=== PATIENT | male | born 1940 | race Caucasian/White ===

== ENCOUNTER 2017-05-20 04:15 | Emergency (ER) | payer MEDICARE ==
[2017-05-20] MEDS ORDERED: AMLO10TA2 PO (04:30)
[2017-05-20] MEDS ORDERED: METO1TAB33 PO (04:30)
[2017-05-20] MEDS ORDERED: FAMO20TA PO (04:30)
[2017-05-20] MEDS ORDERED: GLIM4TAB PO (04:30)
[2017-05-20] MEDS ORDERED: SIMV40TA2 PO (04:30)
[2017-05-20] MEDS ORDERED: PLAV1TAB2 PO (04:30)
[2017-05-20] MEDS ORDERED: ASPI1TAB PO (04:30)
[2017-05-20] MEDS ORDERED: LIDOCAINE 1% MDV 20ML VIAL IM ONE (06:30)
[2017-05-20] MEDS ORDERED: DERMABOND TOPICAL SKIN ADHESIVE TOP ONE (06:45)
[2017-05-20 07:03] VITALS: BP 135/70
== END 2017-05-20 07:05 | disposition home or self-care (01) ==
LOC: M ED 04:15
DX: S01.311A Laceration without foreign body of right ear, initial encounter (principal); W01.198A Fall on same level from slipping, tripping and stumbling with subsequent striking against other object, initial encounter; Y92.89 Other specified places as the place of occurrence of the external cause; Y93.89 Activity, other specified; Y99.8 Other external cause status; I11.9 Hypertensive heart disease without heart failure; Z95.5 Presence of coronary angioplasty implant and graft; F17.200 Nicotine dependence, unspecified, uncomplicated; Z79.899 Other long term (current) drug therapy; Z79.82 Long term (current) use of aspirin; Z79.02 Long term (current) use of antithrombotics/antiplatelets

== ENCOUNTER 2018-03-16 13:10 | Emergency (ER) | payer MEDICARE ==
[2018-03-16] MEDS: diazePAM 5 MG TAB PO (14:02)
[2018-03-16] MEDS: ACETAMINOPHEN TAB 650MG DOSE (2X325MG) PO (14:02)
== END 2018-03-16 15:18 | disposition home or self-care (01) ==
LOC: M ED 13:10
DX: M47.892 Other spondylosis, cervical region (principal); M50.20 Other cervical disc displacement, unspecified cervical region; M43.6 Torticollis; I10 Essential (primary) hypertension; E78.00 Pure hypercholesterolemia, unspecified; Z95.5 Presence of coronary angioplasty implant and graft; Z79.01 Long term (current) use of anticoagulants; F17.210 Nicotine dependence, cigarettes, uncomplicated
CPT/HCPCS: 72125

== ENCOUNTER 2018-03-21 10:17 | Inpatient (IN) | payer MEDICARE ==
[2018-03-21] MEDS: ONDANSETRON 4MG/2ML VIAL (J2405) IV ×2 (11:00→22:29)
[2018-03-21] MEDS: MORPHINE 2 MG/ML 1ML SYRINGE (J2270) IV (11:50)
[2018-03-21 11:55] LABS: BASO # 0.1 10^3/uL (0.0-0.2); BASO % 0.4 % (0.0-1.0); EOS # 0.1 10^3/uL (0.0-0.50); EOS % 0.4 % (0.0-3.0); HEMATOCRIT 40.8 % (42.0-52.0); HEMOGLOBIN 13.7 g/dl (13.5-17.5); IMMATURE GRANULOCYTE % 1.1 % (0-3.0); LYMPH # 0.5 10^3/uL (1.5-4.5); LYMPH % 3.7 % (24.0-44.0); MEAN CORPUSCULAR HEMOGLOBIN 28.1 pg (27.0-33.0); MEAN CORPUSCULAR HGB CONC 33.6 g/dl (32.0-36.5); MEAN CORPUSCULAR VOLUME 83.8 fl (80.0-96.0); MONO # 0.6 10^3/uL (0.0-0.8); MONO % 4.4 % (0.0-5.0); NEUTROPHILS # 12.3 10^3/uL (1.8-7.7); PLATELET COUNT, AUTOMATED 324 10^3/uL (150-450); RED BLOOD COUNT 4.87 10^6/uL (4.30-6.10); RED CELL DISTRIBUTION WIDTH 13.2 % (11.5-14.5); WHITE BLOOD COUNT 13.6 10^3/uL (4.0-10.0)
[2018-03-21 12:18] LABS: ERYTHROCYTE SEDIMENTATION RATE 39 mm/hr (0-20)
[2018-03-21 12:19] LABS: INR 1.16
[2018-03-21 12:20] LABS: PARTIAL THROMBOPLASTIN TIME 49.8 SECONDS (26.8-37.9)
[2018-03-21 12:26] LABS: ANION GAP 11 MEQ/L (8-16); BLOOD UREA NITROGEN 57 MG/DL (7-18); CALCIUM LEVEL 10.2 MG/DL (8.8-10.2); CARBON DIOXIDE LEVEL 21 MEQ/L (21-32); CHLORIDE LEVEL 101 MEQ/L (98-107); CPK CREATINE PHOSPHOKINASE 24 U/L (39-308); CREATININE FOR GFR 2.42 MG/DL (0.70-1.30); GLOMERULAR FILTRATION RATE 27.8 (>42); GLUCOSE, FASTING 203 MG/DL (70-100); POTASSIUM SERUM 4.8 MEQ/L (3.5-5.1); SODIUM LEVEL 133 MEQ/L (136-145); TROPONIN I < 0.02 NG/ML (< 0.10)
[2018-03-21 12:27] LABS: CK-MB VALUE MASS 1.2 NG/ML (<3.6)
[2018-03-21] MEDS ORDERED: GLUCOSE 4 GM CHEW TABLET PO (15:15)
[2018-03-21] MEDS ORDERED: DEXTROSE 50% 50 ML SYRINGE IV (15:15)
[2018-03-21] MEDS ORDERED: GLUCAGON FOR INJ 1 MG VIAL (J1610) SC (15:15)
[2018-03-21] MEDS: HumaLOG INSULIN (NovoLOG) PER UNIT SC ×2 (18:20→20:46)
[2018-03-21 18:23] LABS: CK-MB VALUE MASS < 1.0 NG/ML (<3.6); CPK CREATINE PHOSPHOKINASE 20 U/L (39-308); TROPONIN I < 0.02 NG/ML (< 0.10)
[2018-03-21] MEDS: NS 1,000 ML IV (18:25)
[2018-03-21] MEDS ORDERED: PILL CRUSHER/CUTTER 1 EACH XX (19:00)
[2018-03-21 20:19] LABS: BEDSIDE GLUCOSE 205 MG/DL (83-110)
[2018-03-21] MEDS: ASPIRIN 81 MG ENTERIC TAB PO (20:45)
[2018-03-21] MEDS: METOPROLOL TARTRATE 100 MG TAB PO (20:45)
[2018-03-21] MEDS: FAMOTIDINE 20 MG TAB PO (20:45)
[2018-03-21] MEDS: tiZANidine 4 MG TAB PO (20:46)
[2018-03-21] MEDS: SIMVASTATIN 20 MG TAB PO (20:46)
[2018-03-21] MEDS: CLOPIDOGREL 75 MG TAB PO (20:46)
[2018-03-21] MEDS ORDERED: amLODIPine 10 MG TAB PO (21:00)
[2018-03-21] MEDS: MECLIZINE 12.5 MG TAB PO (23:02)
[2018-03-22 03:03] LABS: HEMATOCRIT 34.5 % (42.0-52.0); MEAN CORPUSCULAR HGB CONC 33.3 g/dl (32.0-36.5); MEAN CORPUSCULAR VOLUME 84.1 fl (80.0-96.0); PLATELET COUNT, AUTOMATED 265 10^3/uL (150-450); RED CELL DISTRIBUTION WIDTH 13.5 % (11.5-14.5); WHITE BLOOD COUNT 14.6 10^3/uL (4.0-10.0)
[2018-03-22 03:06] LABS: HEMOGLOBIN 11.5 g/dl (13.5-17.5)
[2018-03-22 03:29] LABS: ALBUMIN 2.4 GM/DL (3.2-5.2); ALBUMIN/GLOBULIN RATIO 0.65 (1.00-1.93); ALKALINE PHOSPHATASE 150 U/L (45-117); ALT/SGPT 31 U/L (12-78); ANION GAP 8 MEQ/L (8-16); AST/SGOT 51 U/L (7-37); BILIRUBIN,TOTAL 0.4 MG/DL (0.2-1.0); BLOOD UREA NITROGEN 57 MG/DL (7-18); CALCIUM LEVEL 9.1 MG/DL (8.8-10.2); CARBON DIOXIDE LEVEL 21 MEQ/L (21-32); CHLORIDE LEVEL 104 MEQ/L (98-107); CK-MB VALUE MASS < 1.0 NG/ML (<3.6); CPK CREATINE PHOSPHOKINASE 17 U/L (39-308); CREATININE FOR GFR 2.16 MG/DL (0.70-1.30); GLOMERULAR FILTRATION RATE 31.7 (>42); GLUCOSE, FASTING 132 MG/DL (70-100); MB/CK RELATIVE INDEX 5.88 (< OR =4); SODIUM LEVEL 133 MEQ/L (136-145); TOTAL PROTEIN 6.1 GM/DL (6.4-8.2); TROPONIN I < 0.02 NG/ML (< 0.10)
[2018-03-22 03:32] LABS: POTASSIUM SERUM 5.5 MEQ/L (3.5-5.1)
[2018-03-22] MEDS ORDERED: HumuLIN R (REGULAR) INSULIN (NovoLIN R) **100U/ML** PER UNIT IV (04:25)
[2018-03-22] MEDS ORDERED: IPRATROPIUM 0.5MG/ALBUTEROL 2.5MG INH SOL UD 3ML (DUONEB)(J7620) NEB (04:30)
[2018-03-22] MEDS: IPRATROPIUM 0.5MG/ALBUTEROL 2.5MG INH SOL UD 3ML (DUONEB)(J7620) NEB (04:48)
[2018-03-22] MEDS: CALCIUM GLUCONATE 1,000 MG in D5W MINI-BAG PLUS 100 ML IV (05:02)
[2018-03-22] MEDS: SOD POLYSTYRENE SULFONATE SUSP 15 GM/60 ML UD PO (05:07)
[2018-03-22] MEDS: SODIUM BICARBONATE 8.4% INJ 50 ML SYRINGE IV (05:14)
[2018-03-22 05:53] LABS: ABG BASE EXCESS -3.1 (-2.0-2.0); ABG DEVICE NASAL CANN; ABG O2 LITER FLOW 2L; ABG O2 SATURATION 97.3 % (95.0-99.0); ABG PARTIAL PRESSURE CO2 34.7 mmHg (35.0-45.0); ABG PARTIAL PRESSURE O2 92.8 mmHg (75.0-100.0); ABG STANDARD HCO3 21.9 MEQ/L (22.0-26.0); ABG TOTAL CO2 22.1 MEQ/L (23.0-31.0)
[2018-03-22] MEDS: LACTULOSE 20 GM/30 ML SYRUP UD PO (06:00)
[2018-03-22 07:29] LABS: MAGNESIUM LEVEL 2.2 MG/DL (1.8-2.4)
[2018-03-22 07:57] LABS: BEDSIDE GLUCOSE 116 MG/DL (83-110)
[2018-03-22] MEDS: tiZANidine 4 MG TAB PO ×3 (08:38→20:21)
[2018-03-22] MEDS: HumaLOG INSULIN (NovoLOG) PER UNIT SC ×4 (08:39→20:23)
[2018-03-22 10:45] LABS: ANION GAP 8 MEQ/L (8-16); BLOOD UREA NITROGEN 56 MG/DL (7-18); CALCIUM LEVEL 9.4 MG/DL (8.8-10.2); CARBON DIOXIDE LEVEL 23 MEQ/L (21-32); CHLORIDE LEVEL 106 MEQ/L (98-107); CREATININE FOR GFR 1.96 MG/DL (0.70-1.30); GLOMERULAR FILTRATION RATE 35.5 (>42); GLUCOSE, FASTING 84 MG/DL (70-100); POTASSIUM SERUM 4.9 MEQ/L (3.5-5.1); SODIUM LEVEL 137 MEQ/L (136-145)
[2018-03-22 10:49] LABS: CK-MB VALUE MASS < 1.0 NG/ML (<3.6); CPK CREATINE PHOSPHOKINASE 20 U/L (39-308); TROPONIN I < 0.02 NG/ML (< 0.10)
[2018-03-22] MEDS: NS 1,000 ML IV (11:41)
[2018-03-22 11:58] LABS: BEDSIDE GLUCOSE 116 MG/DL (83-110)
[2018-03-22 17:14] LABS: BEDSIDE GLUCOSE 82 MG/DL (83-110)
[2018-03-22 19:41] LABS: OSMOLALITY URINE 570 MOSM/KG (500-800)
[2018-03-22 19:49] LABS: AMORPHOUS SEDIMENT RFX SMALL (NEGATIVE); KETONE, URINE AUTO RFX NEGATIVE (NEGATIVE); LEUKOCYTE ESTERASE UR AUTO RFX NEGATIVE (NEGATIVE); MUCUS, URINE RFX SMALL (NEGATIVE); NITRITE, URINE AUTO RFX NEGATIVE (NEGATIVE); RBC, URINE AUTO RFX 2 /HPF (0-3); SPECIFIC GRAVITY UR AUTO RFX 1.017 (1.002-1.035); SQUAM EPITHELIAL CELL UR AURFX 0 /HPF (0-6); WBC, URINE AUTO RFX 1 /HPF (0-3)
[2018-03-22 20:04] LABS: SODIUM,RANDOM URINE 45 MEQ/L
[2018-03-22 20:20] LABS: BEDSIDE GLUCOSE 179 MG/DL (83-110)
[2018-03-22] MEDS: SIMVASTATIN 20 MG TAB PO (20:21)
[2018-03-22] MEDS: CLOPIDOGREL 75 MG TAB PO (20:21)
[2018-03-22] MEDS: FAMOTIDINE 20 MG TAB PO (20:21)
[2018-03-22] MEDS: ASPIRIN 81 MG ENTERIC TAB PO (20:21)
[2018-03-22] MEDS: METOPROLOL TARTRATE 100 MG TAB PO (20:22)
[2018-03-23 05:26] LABS: HEMATOCRIT 36.3 % (42.0-52.0); HEMOGLOBIN 11.9 g/dl (13.5-17.5); MEAN CORPUSCULAR HEMOGLOBIN 27.9 pg (27.0-33.0); MEAN CORPUSCULAR HGB CONC 32.8 g/dl (32.0-36.5); PLATELET COUNT, AUTOMATED 246 10^3/uL (150-450); RED BLOOD COUNT 4.27 10^6/uL (4.30-6.10); RED CELL DISTRIBUTION WIDTH 13.6 % (11.5-14.5); WHITE BLOOD COUNT 14.9 10^3/uL (4.0-10.0)
[2018-03-23 05:52] LABS: ALBUMIN 2.3 GM/DL (3.2-5.2); ALBUMIN/GLOBULIN RATIO 0.59 (1.00-1.93); ALKALINE PHOSPHATASE 175 U/L (45-117); ALT/SGPT 36 U/L (12-78); ANION GAP 9 MEQ/L (8-16); AST/SGOT 64 U/L (7-37); BILIRUBIN,TOTAL 0.4 MG/DL (0.2-1.0); BLOOD UREA NITROGEN 56 MG/DL (7-18); CARBON DIOXIDE LEVEL 19 MEQ/L (21-32); CHLORIDE LEVEL 106 MEQ/L (98-107); CREATININE FOR GFR 1.93 MG/DL (0.70-1.30); GLOMERULAR FILTRATION RATE 36.1 (>42); GLUCOSE, FASTING 160 MG/DL (70-100); POTASSIUM SERUM 4.7 MEQ/L (3.5-5.1); SODIUM LEVEL 134 MEQ/L (136-145); TOTAL PROTEIN 6.2 GM/DL (6.4-8.2)
[2018-03-23] MEDS: NS 1,000 ML IV (06:45)
[2018-03-23] MEDS: HumaLOG INSULIN (NovoLOG) PER UNIT SC ×2 (08:31→12:00)
[2018-03-23] MEDS: tiZANidine 4 MG TAB PO (08:31)
[2018-03-23 11:34] LABS: TOTAL PROTEIN,RANDOM URINE 81.1 MG/DL (0.0-12.0)
== END 2018-03-23 13:01 | disposition home or self-care (01) | DRG 552 ==
LOC: M PCU 03-22 05:37 → M ED 10:17 → M ED INP 14:53 → M PCU 17:55
DX: M54.2 Cervicalgia (principal); C34.01 Malignant neoplasm of right main bronchus; C78.7 Secondary malignant neoplasm of liver and intrahepatic bile duct; E11.22 Type 2 diabetes mellitus with diabetic chronic kidney disease; N18.9 Chronic kidney disease, unspecified; G43.909 Migraine, unspecified, not intractable, without status migrainosus; M47.812 Spondylosis without myelopathy or radiculopathy, cervical region; E78.5 Hyperlipidemia, unspecified; I25.10 Atherosclerotic heart disease of native coronary artery without angina pectoris; I12.9 Hypertensive chronic kidney disease with stage 1 through stage 4 chronic kidney disease, or unspecified chronic kidney disease; K21.9 Gastro-esophageal reflux disease without esophagitis; F17.210 Nicotine dependence, cigarettes, uncomplicated; E11.42 Type 2 diabetes mellitus with diabetic polyneuropathy; R42 Dizziness and giddiness; H53.9 Unspecified visual disturbance; M62.838 Other muscle spasm; Z66 Do not resuscitate; Z79.82 Long term (current) use of aspirin; Z95.5 Presence of coronary angioplasty implant and graft; Z79.899 Other long term (current) drug therapy; Z79.84 Long term (current) use of oral hypoglycemic drugs